=== PATIENT | female | born 1975 | race Caucasian/White ===

== ENCOUNTER → 2016-11-16 | Outpatient (CLI) | payer MEDICARE ==
[2016-11-16 13:48] LABS: BASO # 0.1 x10^3/uL (0.0-0.2); BASO % 1 % (0-3); EOS # 0.2 x10^3/uL (0.0-0.7); EOS % 3 % (0-3); HEMOGLOBIN 13.6 g/dL (12.0-15.5); LYMPH # 1.2 x10^3/uL (1.0-4.8); LYMPH % 21 % (24-48); MEAN CORPUSCULAR HEMOGLOBIN 32 pg (25-35); MEAN CORPUSCULAR HGB CONC 34 g/dL (31-37); MEAN CORPUSCULAR VOLUME 94 fL (79-100); MONO # 0.4 x10^3/uL (0.0-1.1); MONO % 6 % (0-9); NEUT # 3.9 x10^3uL (1.8-7.7); NEUT % 69 % (31-73); PLATELET COUNT 237 x10^3/uL (140-400); RED BLOOD COUNT 4.27 x10^6/uL (3.50-5.40); RED CELL DISTRIBUTION WIDTH 12.6 % (11.5-14.5); WHITE BLOOD COUNT 5.7 x10^3/uL (4.0-11.0)
[2016-11-16 13:59] LABS: ALBUMIN 3.9 g/dL (3.4-5.0); ALBUMIN/GLOBULIN RATIO 1.1 (1.0-1.7); C REACTIVE PROTEIN 4.5 mg/L (0-3.3); CALCIUM 9.2 mg/dL (8.5-10.1); CREATININE 0.9 mg/dL (0.6-1.0); GFR 68.7; POTASSIUM 4.5 mmol/L (3.5-5.1); TOTAL BILIRUBIN 0.4 mg/dL (0.2-1.0); TOTAL PROTEIN 7.5 g/dL (6.4-8.2)
[2016-11-16 14:53] LABS: SEDIMENTATION RATE 22 (0-25)
[2016-11-18 19:07] LABS: ANA INTERP Positive (.)
== END | disposition home or self-care (01) ==
LOC: LAB 12:43
PROVIDERS: ATTEND Internal Medicine Rheumatology
DX: M25.50 Pain in unspecified joint (principal); R76.0 Raised antibody titer
CPT/HCPCS: 36415; 80053; 85027; 85651; 86140

== ENCOUNTER → 2017-03-31 | Outpatient (CLI) | payer MEDICARE ==
--- NOTE | 2017-03-31 12:59 | RAD ---
EXAM: Chest 2 views. HISTORY: Chest pain. COMPARISON: 06/09/2014. FINDINGS: Frontal and lateral views of the chest are obtained. There are no confluent infiltrates. There is no pneumothorax or pleural effusion. The heart is not enlarged. Cholecystectomy clips are noted. IMPRESSION: 1. No confluent infiltrates.
== END | disposition home or self-care (01) ==
LOC: DXRAD 11:39
PROVIDERS: ATTEND Physician Assistant
DX: R09.89 Other specified symptoms and signs involving the circulatory and respiratory systems (principal); Z90.49 Acquired absence of other specified parts of digestive tract
CPT/HCPCS: 71020

== ENCOUNTER → 2017-10-20 | Outpatient (CLI) | payer MEDICARE ==
--- NOTE | 2017-10-20 13:21 | RAD ---
Right Lower Extremity Venous Doppler Ultrasound Indication: Pain swelling. History of deep venous thrombosis. Bruise in the upper thigh. Comparison: None. Procedure: Color Doppler, spectral Doppler, and grayscale images with and without compression are obtained in the area of the common femoral vein, superficial femoral vein - femoral vein junction, main femoral vein (superficial femoral vein) and popliteal vein. Veins of the proximal calf are also imaged. Findings: There is normal duplex flow, color flow and compressibility of all visualized vein segments. There is no evidence of deep venous thrombosis. Additional imaging was performed of the posterior thigh in area of bruising. No focal fluid collection is identified. Impression: No evidence of right lower extremity deep venous thrombosis. Electronically signed by: Vincent Cruz MD (10/20/2017 1:18 PM) [place] [id number]
== END | disposition home or self-care (01) ==
LOC: PMG 11:14
PROVIDERS: ATTEND Family Medicine
DX: M79.651 Pain in right thigh (principal); M79.89 Other specified soft tissue disorders; Z86.718 Personal history of other venous thrombosis and embolism
CPT/HCPCS: 93971

== ENCOUNTER 2018-01-22 03:37 | Inpatient (IN) | payer MEDICARE ==
[~2018-01-22] VITALS: Ht 175.3 cm; Wt 88.3 kg
[2018-01-22] MEDS ORDERED: ONDANSETRON ODT 4 MG TAB.RAPDIS ONE (03:49)
--- NOTE | 2018-01-22 03:50 | ED.ADGEN ---
Past History Past Medical History: Arthritis, CVA, Seizure, Stroke, Other Past Surgical History: Hysterectomy, Other Adult General Chief Complaint Chief Complaint "....This is the third day of nausea and vomiting... I think I am dehydrated... the only other time I felt this bad.. I had really low potassium...".. " I just fell bad all over.. really tired... I am afraid I going to have seizure.. because I can't keep my seizure meds down.. " HPI HPI Patient is a 42 year old female who presents with above hx and complaints persistent nausea and vomiting for past three days. Pt has generalized myalgia , arthralgia and malaise. Pt. denies any travel, trauma or specific ill contacts. No hx of bad food intake. Pt. states she has had a headache with all the nausea and vomiting. Pt. did take a Zofran at home with out any relief of the nausea and vomiting. Pt. has significant hx of antiphospholipid antibody - has resulted in two Rt sided CVAs. (2003, 2011). Hx of Rt. eye field vision loss from 1st CVA. . Hx. of arthritis. Hx. of Lupus. Pt. has not been on Coumadin for years, only takes ASA and high dosage of Folate 800 a day. Patient does follow with a produce assistant and a drafter. Patient also follows with Dr. Jean Baptiste for maintenance health care. Pt. has been unable to take any of her anti-inflammatory or seizure medications. Patient does have some mild epigastric pain. Patient denies any problems with passage of gas or stool. No dark stools reported. Review of Systems Review of Systems Constitutional: Denies fever or chills [] Eyes: Denies change in visual acuity, redness, or eye pain [] HENT: Denies nasal congestion or sore throat [] Respiratory: Denies cough or shortness of breath [] Cardiovascular: No additional information not addressed in HPI [] GI: Complains of generalized abdominal pain, nausea, vomiting. Denies bloody stools or diarrhea [] : Denies dysuria or hematuria [] Musculoskeletal: Denies back pain or joint pain [] Integument: Denies rash or skin lesions [] Neurologic: Complains of headache. Denies, focal weakness or sensory changes [] Endocrine: Denies polyuria or polydipsia [] All other systems were reviewed and found to be within normal limits, except as documented in this note. Family History Family History Noncontributory Current Medications Current Medications Current Medications Medications (Trade) Dose Ordered Sig/Barb Start Time Stop Time Status Last Admin Dose Admin Famotidine (Pepcid Vial) 20 mg 1X ONCE 01/22/18 04:30 01/22/18 04:31 DC 01/22/18 04:20 20 MG Lactated Ringer's 1,000 ml @ 1,000 mls/hr Q1H 01/22/18 04:30 01/22/18 05:29 DC 01/22/18 04:19 1,000 MLS/HR Ondansetron HCl (Zofran Odt) 8 mg 1X ONCE 01/22/18 04:30 01/22/18 04:31 DC 01/22/18 04:20 8 MG Ondansetron HCl (Zofran) 8 mg 1X ONCE 01/22/18 04:30 01/22/18 04:31 DC Allergies Allergies Allergies Coded Allergies Type Severity Reaction Last Updated Verified codeine Allergy Unknown 01/22/18 Yes Physical Exam Physical Exam Constitutional: in acute distress, non-toxic appearance. [] HENT: Normocephalic, atraumatic, bilateral external ears normal, oropharynx dry, , no oral exudates, nose normal. [] Eyes: PERRLA, EOMI, conjunctiva normal, no discharge. [] Rt. field vision loss. ( Appears to have some deficit in both eyes on exam. ) Neck: Normal range of motion, no tenderness, supple, no stridor. [] Cardiovascular:Heart rate regular rhythm, no murmur [] Lungs & Thorax: Bilateral breath sounds clear to auscultation [] Abdomen: Bowel sounds normal, soft, epigastric tenderness, no masses, no pulsatile masses. [] Old surgical scars Skin: Warm, dry, no erythema, no rash. [] Poor turgor Back: No tenderness, no CVA tenderness. [] Extremities: No tenderness, no cyanosis, no clubbing, ROM intact, no edema. [] Neurologic: Alert and oriented X 3, normal motor function, normal sensory function, no focal deficits noted. []DTR +2 patella, and brachia. High Lighter equal. No drift. No distal vib. loss. Psychologic: Affect anxious, judgement normal, mood depressed. [] Current Patient Data Vital Signs Vital Signs Date Time Temp Pulse Resp B/P (MAP) Pulse Ox O2 Delivery O2 Flow Rate FiO2 01/22/18 03:37 97.7 80 22 99 Room Air Lab Results Laboratory Tests Test 01/22/18 04:02 White Blood Count 7.4 x10^3/uL (4.0-11.0) Red Blood Count 4.19 x10^6/uL (3.50-5.40) Hemoglobin 13.8 g/dL (12.0-15.5) Hematocrit 39.7 % (36.0-47.0) Mean Corpuscular Volume 95 fL (79-100) Mean Corpuscular Hemoglobin 33 pg (25-35) Mean Corpuscular Hemoglobin Concent 35 g/dL (31-37) Red Cell Distribution Width 12.6 % (11.5-14.5) Platelet Count 226 x10^3/uL (140-400) Neutrophils (%) (Auto) 56 % (31-73) Lymphocytes (%) (Auto) 28 % (24-48) Monocytes (%) (Auto) 9 % (0-9) Eosinophils (%) (Auto) 6 % (0-3) H Basophils (%) (Auto) 1 % (0-3) Neutrophils # (Auto) 4.1 x10^3uL (1.8-7.7) Lymphocytes # (Auto) 2.1 x10^3/uL (1.0-4.8) Monocytes # (Auto) 0.6 x10^3/uL (0.0-1.1) Eosinophils # (Auto) 0.4 x10^3/uL (0.0-0.7) Basophils # (Auto) 0.1 x10^3/uL (0.0-0.2) Erythrocyte Sedimentation Rate 17 (0-25) Prothrombin Time 9.5 SEC (9.4-11.4) Prothrombin Time INR 1.0 (0.9-1.1) PTT 24 SEC (23-33) Sodium Level 137 mmol/L (136-145) Potassium Level 3.6 mmol/L (3.5-5.1) Chloride Level 102 mmol/L (98-107) Carbon Dioxide Level 26 mmol/L (21-32) Anion Gap 9 (6-14) Blood Urea Nitrogen 17 mg/dL (7-20) Creatinine 0.8 mg/dL (0.6-1.0) Estimated GFR (Cockcroft-Gault) 78.3 Glucose Level 84 mg/dL (70-99) Calcium Level 9.3 mg/dL (8.5-10.1) Troponin I Quantitative < 0.017 ng/mL (0-0.055) C-Reactive Protein 5.4 mg/L (0-3.3) H Lipase 153 U/L (73-393) EKG EKG My interpretation EKG shows a sinus rhythm at 66 bpm. Leftward axis. No findings acute STEMI of contralateral changes.[] Radiology/Procedures Radiology/Procedures My interpretation acute abdomen film shows no acute cardiopulmonary findings. No free air in the diaphragm. Does have clips from prior gallbladder surgery. Nonspecific bowel gas pattern. My interpretation CT of head shows no shift, mass, edema, bleed, or fracture. See formal report when available[] Course & Med Decision Making Course & Med Decision Making Pertinent Labs and Imaging studies reviewed. (See chart for details) Discussed presentation, testing and tx. plan with Dr. Soliman. Patient to be admitted to telemetry for further evaluation and treatment Dr. Soliman. [] Final Impression Final Impression 1. Nausea and vomiting- Intractable 2. Dehydration[] 3. Hx. of Antiphospholipid Antibody 4. Hx. of CVA - RT side- 2011. 5. Rt. Field Vision loss from CVA 6. Hx. Seizure Disorder 7. Hx. Lupus 8. Elevated CRP 9. Urine Drug Screen + Marijuana Dragon Disclaimer Dragon Disclaimer This electronic medical record was generated, in whole or in part, using a voice recognition dictation system. SHABBIR DALE MD Jan 22, 2018 03:50
[2018-01-22 04:16] LABS: BASO # 0.1 x10^3/uL (0.0-0.2); BASO % 1 % (0-3); EOS # 0.4 x10^3/uL (0.0-0.7); EOS % 6 % (0-3); HEMATOCRIT 39.7 % (36.0-47.0); HEMOGLOBIN 13.8 g/dL (12.0-15.5); LYMPH # 2.1 x10^3/uL (1.0-4.8); LYMPH % 28 % (24-48); MEAN CORPUSCULAR HEMOGLOBIN 33 pg (25-35); MEAN CORPUSCULAR HGB CONC 35 g/dL (31-37); MEAN CORPUSCULAR VOLUME 95 fL (79-100); MONO # 0.6 x10^3/uL (0.0-1.1); MONO % 9 % (0-9); NEUT # 4.1 x10^3uL (1.8-7.7); NEUT % 56 % (31-73); PLATELET COUNT 226 x10^3/uL (140-400); RED BLOOD COUNT 4.19 x10^6/uL (3.50-5.40); RED CELL DISTRIBUTION WIDTH 12.6 % (11.5-14.5); WHITE BLOOD COUNT 7.4 x10^3/uL (4.0-11.0)
[2018-01-22 04:25] LABS: C REACTIVE PROTEIN 5.4 mg/L (0-3.3); CALCIUM 9.3 mg/dL (8.5-10.1); CREATININE 0.8 mg/dL (0.6-1.0); GFR 78.3; POTASSIUM 3.6 mmol/L (3.5-5.1)
[2018-01-22] MEDS ORDERED: IV RINGERS SOLUTION,LACTATED 1,000 ML IV SCH (04:30)
[2018-01-22] MEDS ORDERED: ONDANSETRON ODT 4 MG TAB.RAPDIS PO ONE (04:30)
[2018-01-22] MEDS ORDERED: FAMOTIDINE 20 MG/2 ML VIAL IVP ONE (04:30)
[2018-01-22] MEDS ORDERED: ONDANSETRON PF 4 MG/2 ML VIAL. IV ONE (04:30)
--- NOTE | 2018-01-22 04:41 | RAD ---
CT head without contrast TECHNIQUE: [address] imaging skull base to vertex. HISTORY: Headache for 3 days. History of prior cerebral vascular accident. FINDINGS: No intracranial hemorrhage, mass, hydrocephalus, extra-axial fluid collections or infarction. No acute ischemic change. Orbits, paranasal sinuses, mastoids and bones are unremarkable. IMPRESSION: No acute intracranial CT abnormality. Exposure: One or more of the following individualized dose reduction techniques were utilized for this examination: 1. Automated exposure control 2. Adjustment of the mA and/or kV according to patient size 3. Use of iterative reconstruction technique Electronically signed by: Saulo Hahn MD (01/22/2018 4:38 AM) [facility]
--- NOTE | 2018-01-22 04:45 | EKG ---
[address] [address] Test Date: 2018-01-22 Test Time: 04:43:34 Pat Name: CHRISTIE CARR Department: Room: Gender: F Nurse Practitioner Physicians Assistant: : 1975 Requested By: SHABBIR DALE Order Number: [id number] Reading MD: Tony Del Castillo MD Measurements Intervals [place] Rate: 66 P: -41 MA: 146 QRS: -9 QRSD: 80 T: 24 QT: 400 QTc: 421 Interpretive Statements SINUS RHYTHM Electronically Signed On 01-23-2018 12:16:48 CDT by Tony Del Castillo MD
--- NOTE | 2018-01-22 04:53 | RAD ---
PA chest and AP upright supine abdomen x-rays HISTORY: Abdominal pain, nausea and vomiting for 3 days. FINDINGS: Heart size normal. No pulmonary opacities or pleural effusions. No pneumoperitoneum. Cholecystectomy. Mild volume of stool. No dilated small bowel loops. Bones and soft tissues are unremarkable. IMPRESSION: No evidence of bowel obstruction. No acute process in the chest. Electronically signed by: Saulo Hahn MD (01/22/2018 4:51 AM) [facility]
[2018-01-22 04:57] LABS: BARBITURATES NEG (NEG); BENZODIAZEPINES NEG (NEG); CANNABINOIDS POS (NEG); COCAINE NEG (NEG); METHADONE NEG (NEG); OPIATES NEG (NEG); PHENCYCLIDINE NEG (NEG)
[2018-01-22 04:58] LABS: BACTERIA,URINE 0 /HPF (0-FEW); BILIRUBIN,URINE NEG (NEG); CLARITY,URINE CLEAR; COLOR,URINE YELLOW; GLUCOSE,URINE NEG (NEG); NITRITE,URINE NEG (NEG); RBC,URINE 0 /HPF (0-2); SQUAMOUS EPITHELIAL CELL,UR FEW /LPF; UROBILINOGEN,URINE 0.2 mg/dL (0.2 mg/dL); WBC,URINE OCC /HPF (0-4)
[2018-01-22] MEDS ORDERED: LORazepam 2 MG/ML VIAL ONE ×2 (04:58→18:57)
[2018-01-22 04:59] LABS: AMPHETAMINE/METHAMPHETAMINE NEG (NEG)
[2018-01-22] MEDS ORDERED: lamoTRIgine 100 MG TABLET. PO ONE (05:00)
[2018-01-22 05:14] LABS: SEDIMENTATION RATE 17 (0-25)
[2018-01-22] MEDS ORDERED: PROMETHAZINE IM 25 MG/ML VIAL IM ONE (05:30)
[2018-01-22] MEDS ORDERED: methylPREDNISolone SOD SUCC PF 125 MG/2 ML VIAL. IV ONE (05:30)
[2018-01-22] MEDS ORDERED: LORazepam 2 MG/ML VIAL IV ONE (05:30)
[2018-01-22] MEDS ORDERED: diphenhydrAMINE 50 MG/ML VIAL IVP ONE (05:30)
[2018-01-22 05:59] VITALS: BP 131/85
[2018-01-22] MEDS ORDERED: LAMO200T3 PO (05:59)
[2018-01-22] MEDS ORDERED: ASPI325T8 PO (05:59)
[2018-01-22] MEDS ORDERED: FOLIC ACID 1 MG TABLET PO ONE (06:00)
[2018-01-22] MEDS ORDERED: VORT10TA PO (06:25)
[2018-01-22] MEDS ORDERED: LAMO200T2 PO (06:25)
[2018-01-22] MEDS ORDERED: BUPR-192 PO (06:25)
[2018-01-22] MEDS ORDERED: PANT40TA5 PO (06:25)
[2018-01-22] MEDS ORDERED: ONDA4TAB12 SL (06:25)
[2018-01-22] MEDS: ASPIRIN 325 MG TABLET PO SCH (06:25)
[2018-01-22] MEDS: IV RINGERS SOLUTION,LACTATED 1,000 ML IV SCH ×4 (06:27→20:28)
[2018-01-22] MEDS ORDERED: PANT40VI16 IV (07:55)
[2018-01-22] MEDS ORDERED: LEVE500T56 IV (07:55)
[2018-01-22] MEDS: ONDANSETRON PF 4 MG/2 ML VIAL. IV PRN ×3 (09:28→17:43)
[2018-01-22 10:40] VITALS: BP 104/68
[2018-01-22] MEDS ORDERED: PROMETHAZINE 12.5 MG in IV NORMAL SALINE 50ML 50 ML IV PRN (12:45)
[2018-01-22] MEDS: PROMETHAZINE 25 MG TABLET. PO PRN ×2 (13:25→20:28)
--- NOTE | 2018-01-22 13:31 | HP ---
ADMIT DATE: 01/22/2018 HISTORY OF PRESENT ILLNESS: The patient is a 42-year-old female patient who came to the Emergency Room complaining of recurrent bouts of nausea and vomiting. She stated that this started about 3 days ago, and when she came this morning, her nausea and vomiting became worse and she also complained of feeling achy all over, really tired, was worried that she have a seizure. She has not kept any seizure medication down. She is known to have seizure disorder since her teenager years and she has been on Lamictal 400 mg twice a day. The patient denied any travel, trauma, or specific ill contact. She has no history of bad food intake. She has had headache with all the nausea and vomiting. She also did take her Zofran at home without any relief of nausea and vomiting. She was admitted and started on IV fluid and antiemetic. Given that she has not had any of her anti-seizure medication, I did start her empirically on Keppra 500 mg twice a day. PAST MEDICAL HISTORY: Significant for seizure disorder since teenager years. She is known to have systemic lupus erythematosus, antiphospholipid syndrome. She did have DVT in her left leg and arm. 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 She was on Coumadin and was discontinued about 3 years ago because of excessive vaginal bleeding, and for which she ended up with a hysterectomy and unilateral oophorectomy. PAST SURGICAL HISTORY: Significant for cholecystectomy, total abdominal hysterectomy, unilateral oophorectomy, tonsillectomy. ALLERGIES: She is allergic to CODEINE. MEDICATIONS: She is currently on following medications: She is on aspirin 325 mg once a day, folic acid 800 mcg daily, Protonix 40 mg twice a day. She is on Lamictal 400 mg twice a day. She is also on ondansetron 4 mg every 6 hours, Trintellix 10 mg once a day, and Wellbutrin-XL 150 mg once a day. FAMILY HISTORY: She is the only child. Her father at age of 56 because of multiple myocardial infarctions and congestive heart failure. Her mother is still alive at age of 70 and in good health. SOCIAL HISTORY: She is , has 3 biological children of her own and 3 from her . She does not smoke, does not drink alcohol, or use any drugs. She is a [id number] mom. She is using CBD for her joint pain. REVIEW OF SYSTEMS: She does have poor vision in her right eye after she had a stroke, but denied any earache, tinnitus, or sensorineural deafness. Denied any nosebleeds, stuffy nose, or postnasal drip. Denied any sore throat, sore tongue, toothache, hoarseness of voice, or difficulty swallowing. She continued to have dry heaves and vomiting, mostly bile. No hematemesis. Her last bowel movement was about 5 days ago. She denied any abdominal pain. Denied any dysuria, frequency, hematuria. Denied any chest pain, shortness of breath, orthopnea, paroxysmal nocturnal dyspnea. She did complain of headache, generalized aches and pains, and marked weakness: PHYSICAL EXAMINATION: GENERAL: When I examined her this morning, she was resting slightly propped up in bed, in no apparent respiratory distress. No pallor, jaundice, or cyanosis. No lymphadenopathy, no thyromegaly. No jugular venous distension. No lower limb edema. VITAL SIGNS: Her heart rate when I saw her was 77, blood pressure was 104/68, temperature was 98.3, respiratory rate was 18, and oxygen saturation was 93% on room air. HEAD, EYES, EAR, NOSE, AND THROAT: Showed normocephalic, atraumatic. NECK: Supple. HEART: Showed normal first and second heart sounds with no gallop, rub, or murmur. CHEST: Clear to auscultation. No crepitation or rhonchi. ABDOMEN: Distended, soft, nontender. No guarding or rigidity. No organomegaly. All hernial orifice intact. Bowel sounds normal. NEUROLOGIC: She is awake, alert, responding appropriately. All cranial nerves intact. EXTREMITIES: She moves extremities without difficulty. No cerebellar dysfunction. PSYCHOLOGICAL: Affect is anxious. Judgment was normal and mood was depressed. LABORATORY DATA: While in the Emergency Room, she has had lab work done, which showed that her white cell count was 7400, hemoglobin 13.8, hematocrit 39.7, MCV 95, and platelet count 226,000 with normal manual differential. Her prothrombin time was 9.5, INR of 1, aPTT was 24. Her chemistry showed a serum sodium 137, potassium 3.6, chloride 102, bicarbonate 26, anion gap of 9, BUN 17, creatinine 0.8, estimated GFR was 78 mL per minute, her calcium was 9.3. Serum lipase was 153. C-reactive protein was 5.4. Her sedimentation rate was 17. Her urinalysis showed the urine was yellow, clear with a pH of 6, specific gravity of 1.015. The urine was negative for protein, glucose. There was a small amount of ketones, negative for blood, nitrite, and leukocyte esterase. There are no rbc's, no wbc's, and no bacteria. Her toxic screen was positive for cannabinoid screen. It was negative for opiates, methadone, barbiturates, phencyclidine, amphetamine, methamphetamine, benzodiazepine, cocaine, and alcohol. Her CT scan of the head showed there is no intracranial hemorrhage, mass, hydrocephalus, extraaxial fluid collection, or infarction. No acute ischemic changes orbits, paranasal sinuses, mastoid, and air cells and bones are unremarkable. Her acute abdomen series showed that the heart size is normal. No pulmonary opacities or pleural effusions, no pneumomediastinum, no pneumoperitoneum. She has a cholecystectomy, mild volume of stool, no dilated small bowel loops, bones and soft tissues are unremarkable. IMPRESSION: The patient was admitted with intractable nausea and vomiting that has been going on for the last 3 days. Surprisingly, her lab work seemed to be reasonable as well. Her kidney function also seemed to be well within acceptable range. PLAN: My plan is to continue with IV fluid. We will try Phenergan, as Phenergan known to have worked better for her and I started her on Keppra 500 mg IV twice a day. Once she is able to tolerate food, we will switch her back to her all her medication. I will repeat all her lab works tomorrow. CHENCHO VALERO MD DR: JERROD/oracio JOB#: [id number] / [id number]
[2018-01-22 13:59] VITALS: BP 105/66
[2018-01-22 18:53] VITALS: BP 116/82
[2018-01-22] MEDS ORDERED: LORazepam 2 MG/ML VIAL IV PRN (19:15)
[2018-01-22 22:11] VITALS: BP 105/60
[2018-01-22] MEDS ORDERED: PANT40TA3 PO (23:12)
[2018-01-22] MEDS ORDERED: NIFE10CA2 PO (23:17)
[2018-01-22] MEDS: PANTOPRAZOLE IV 40 MG VIAL. IVP SCH (23:44)
[2018-01-23] VITALS (7 sets, daily range): BP systolic 98–118; BP diastolic 64–82
[2018-01-23] MEDS: IV RINGERS SOLUTION,LACTATED 1,000 ML IV SCH ×5 (02:05→20:39)
[2018-01-23] MEDS: PROMETHAZINE 25 MG TABLET. PO PRN ×3 (06:18→19:38)
[2018-01-23] MEDS: ACETAMINOPHEN 325 MG TABLET PO PRN ×2 (06:18→23:27)
[2018-01-23 07:16] LABS: BASO % 1 % (0-3); EOS # 0.1 x10^3/uL (0.0-0.7); EOS % 2 % (0-3); HEMATOCRIT 34.1 % (36.0-47.0); HEMOGLOBIN 11.7 g/dL (12.0-15.5); LYMPH # 2.1 x10^3/uL (1.0-4.8); LYMPH % 35 % (24-48); MEAN CORPUSCULAR HEMOGLOBIN 33 pg (25-35); MEAN CORPUSCULAR HGB CONC 34 g/dL (31-37); MEAN CORPUSCULAR VOLUME 96 fL (79-100); MONO # 0.4 x10^3/uL (0.0-1.1); MONO % 7 % (0-9); NEUT # 3.3 x10^3uL (1.8-7.7); NEUT % 55 % (31-73); PLATELET COUNT 171 x10^3/uL (140-400); RED BLOOD COUNT 3.56 x10^6/uL (3.50-5.40); RED CELL DISTRIBUTION WIDTH 12.7 % (11.5-14.5)
[2018-01-23 07:53] LABS: ALBUMIN 2.9 g/dL (3.4-5.0); ALBUMIN/GLOBULIN RATIO 1.2 (1.0-1.7); CALCIUM 8.3 mg/dL (8.5-10.1); CREATININE 0.8 mg/dL (0.6-1.0); GFR 78.3; POTASSIUM 3.6 mmol/L (3.5-5.1); TOTAL BILIRUBIN 0.3 mg/dL (0.2-1.0); TOTAL PROTEIN 5.3 g/dL (6.4-8.2)
[2018-01-23] MEDS: ASPIRIN 325 MG TABLET PO SCH (09:16)
[2018-01-23] MEDS: PANTOPRAZOLE IV 40 MG VIAL. IVP SCH ×2 (09:25→19:38)
[2018-01-23] MEDS ORDERED: NIFEdipine 10 MG CAPSULE PO PRN (13:45)
[2018-01-23] MEDS: buPROPion XL 150 MG TAB.ER.24H PO SCH ×2 (15:38→19:51)
[2018-01-23] MEDS: ONDANSETRON ODT 4 MG TAB.RAPDIS PO PRN ×2 (16:31→22:01)
[2018-01-23] MEDS: lamoTRIgine 100 MG TABLET. PO SCH (20:37)
[2018-01-23] MEDS ORDERED: lamoTRIgine 100 MG TABLET. PO SCH (21:00)
[2018-01-23] MEDS ORDERED: NON FORMULARY ITEM (Pantoprazole Sodium (Protonix) 40 MG) PO SCH (21:00)
--- NOTE | 2018-01-23 22:15 | CONS ---
DATE OF CONSULTATION: 01/23/2018 REFERRING PHYSICIAN: Kerry Soliman MD REASON FOR CONSULTATION: Possible breakthrough seizure. HISTORY OF PRESENT ILLNESS: This is a 42-year-old female, right-handed, was admitted through Emergency Room on 01/22/2018 on the account of persistent nausea, vomiting and epigastric pain. The patient has had 2 spells yesterday described as tonic movements of the upper extremities lasted 1 minute without postictal confusion. The patient did not recall the event. Then, she had another spell this morning and was very brief without postictal confusion. The patient did not recall these spells. She has had a history of seizure disorder since age of teenage. Etiology is uncertain. The patient has had longstanding history of lupus and she has been followed by fence gate assembler. She was placed on Plaquenil. The symptoms of nausea and vomiting has been present for the last 3 days and very frequent. She has been taking Zofran at home without significant relief of her symptoms. The patient also complains of epigastric pain and she related that to GERD. She has had history of esophageal reflux disease and she has been taking Protonix twice daily. She has not had a seizure for a long time. The frequency of seizure is probably once a year and she has been seen by neurologist at [facility] and had numerous EEGs, which are consistent with complex partial seizure. Initial nonenhanced head CT scan revealed no evidence of acute intracranial process. The patient has been taking Lamictal 800 mg for seizure disorder, but because of recurrent nausea and vomiting, she has been loaded with Keppra IV 500 mg twice daily and because she had another spells, the Keppra was increased to 1000 twice daily intravenously. Currently, she complains of mild global headaches. She denies weakness, numbness or paresthesia, visual disturbances, recent head injuries or falls. She denies bowel movement changes. PAST MEDICAL HISTORY: Significant for lupus since teenager described as systemic lupus erythematosus. She is positive for antiphospholipid antibodies and had DVTs in the left leg. She did left middle cerebral artery infarct resulted in right-sided hemiparesis and loss of vision in the right eye in 2003. She has been on Coumadin, but was discontinued 3 years ago because of excessive vaginal bleeding required hysterectomy. States she was placed on a regular dose of aspirin. PAST SURGICAL HISTORY: Significant for cholecystectomy, total abdominal hysterectomy and tonsillectomy. CURRENT HOME MEDICATIONS: Aspirin 325 mg daily, folic acid 800 mcg daily, Protonix 40 mg twice daily, Lamictal 400 mg twice daily, Zofran 4 mg q. 6 hours p.r.n. for vomiting and nausea, Trintellix ____ once daily, Wellbutrin XL 150 mg once daily. ALLERGIES: CODEINE. FAMILY HISTORY: Father at the age of 56 of myocardial infarction. Mother is alive at the age of 70. SOCIAL HISTORY: The patient is . She had 6 grown children. She denies alcohol drinking or illicit drug use, but she smokes marijuana. REVIEW OF SYSTEMS: A 10-point review of system was performed as mentioned above in history of present illness. PHYSICAL EXAMINATION: GENERAL: Well-developed, well-nourished female, not in acute distress. She weighs 191 pounds. VITAL SIGNS: Blood pressure 106/71, respiratory rate 18, pulse is 70 and regular, temperature 98.2, oxygen saturation 95% on room air. HEENT: Normocephalic, atraumatic, otherwise, unremarkable. NECK: Supple. Negative for carotid bruit, lymphadenopathy or thyromegaly. LUNGS: Clear to A and P. CARDIOVASCULAR: Regular rate and rhythm, normal S1, S2. There is no S3, S4 or murmur. ABDOMEN: Soft. Bowel sounds positive. EXTREMITIES: Negative for cyanosis, clubbing, or edema. ABDOMEN: Soft. Bowel sounds positive. There is mild epigastric tenderness. There is no organomegaly. EXTREMITIES: Negative for cyanosis, clubbing or pitting edema. NEUROLOGIC: Mental status: The patient is alert and oriented x 3. The speech is fluent. There is no language dysfunction. Memory, judgment and abstract thinking are normal. The patient denies hallucination or delusion. Visual deal are full. The pupils are reactive to light and accommodation. The extraocular movements are intact. There is no nystagmus. There is no facial motor or sensory deficit. Hearing is intact bilaterally. The palate is elevated symmetrically. Sternocleidomastoid muscles are powerful bilaterally. The patient shrugs her shoulders symmetrically. Protrudes her tongue in the midline without fasciculation or atrophy. MOTOR: No focal muscle bulk was seen. The tone is normal. The strength is 5/5 throughout. Sensory examination revealed normal pinprick and light touch senses throughout. Deep tendon reflexes were symmetric and hypoactive with absent Achilles responses. Gait: The stance is steady. The patient walks without assistance. LABORATORY DATA: CBC revealed white blood cells of 6000, hemoglobin 11.7, hematocrit 34.1, platelet count 171,000. Chemistry revealed sodium of 140, potassium 3.6, chloride 107, CO2 of 26, BUN 8, creatinine 0.8, glucose 111. Calcium is 8.3. Troponin level is normal. Urinalysis is negative. Urine drug screen is positive for marijuana. Non-enhanced head CT scan is normal without acute intracranial abnormalities. Abdomen series, no evidence of bowel obstructions. IMPRESSION: 1. Questionable breakthrough seizure with longstanding history of seizure disorder of unknown etiology. 2. History of stroke resulted in right hemiparesis, none present at this time. 3. Multiple medical problems include systemic lupus erythematosus, positive antiphospholipid antibody 4. Persistent nausea, vomiting with epigastric tenderness, probably due to underlying gastroesophageal reflux disease. 6. Depression and marijuana abuse. RECOMMENDATIONS: 1. Continue with Keppra for now. 2. Treat the underlying gastroesophageal reflux disease. 3. We will arrange for neurological followup on an outpatient basis and arrange for electroencephalogram. M Brittany ROSARIO MD DR: SUSANA/oracio JOB#: [id number] / [id number]
--- NOTE | 2018-01-24 00:44 | PN ---
DATE: 01/23/2018 SUBJECTIVE: The patient is resting slightly propped up in bed, in no apparent distress. She is definitely more awake, alert, has had no further episodes of nausea, vomiting. She did have what seems to be grand mal seizure yesterday, although her said that she has pseudoseizures rather than seizures. We did treat her with substituted her Lamictal with Keppra and has received 500 mg in the morning and after her seizure, we increased her to 1000 mg IV twice a day as she was unable to tolerate all her medication. PHYSICAL EXAMINATION: GENERAL: When I examined her this morning, she looked well and was clearly in no apparent respiratory distress, slightly pale. She is actually, if anything, somewhat plethoric, but no jaundice or cyanosis. No lymphadenopathy, no thyromegaly. No jugular venous distension. No limb edema. VITAL SIGNS: Her heart rate was 63, blood pressure was 105/67, her temperature was 98.4, respiratory rate 20 and oxygen saturation was 93%. HEAD, EYES, EARS, NOSE AND THROAT: Showed normocephalic, atraumatic. NECK: Supple. HEART: Showed normal first and second heart sounds with no gallop, rub or murmur. CHEST: Clear to auscultation. No crepitation or rhonchi. ABDOMEN: Distended, soft, nontender. NEUROLOGIC: She is awake, alert, responding appropriately. All her cranial nerves intact. She moves extremities without difficulty. She ambulates without assistance or assistive devices, although yesterday, she was somewhat dizzy and required assistance. Her intake over the last 24 hours was 5194, output was 700. LABORATORY DATA: Her lab work this morning showed a white cell count of 6000, hemoglobin 11.7, hematocrit 34, MCV 96, and platelet count of 171,000. Her chemistry showed serum sodium of 140, potassium 3.6, chloride 107, bicarbonate 26, anion gap of 7, BUN 8, creatinine 0.8. Estimated GFR was 78 mL per minute. Her glucose 111, calcium was 8.3. Total bilirubin, AST, ALT, alkaline phosphatase were normal. Total protein was 5.3, albumin 2.9 and serum lipase was 157. Her sed rate was 17 mm/hour. C-reactive protein was 5.4 mg/dL. ASSESSMENT: 1. Seizure disorder since teenage years for which she is on Lamictal 200 mg twice a day, although the patient herself said that she is on 400 mg twice a day. She is known to have systemic lupus erythematosus. 2. Either lupus anticoagulant or antiphospholipid syndrome. She apparently had DVT in her left leg and arm. 3. 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 She was on Coumadin and this was discontinued about 3 years ago because of excessive vaginal bleeding for which she ended up with hysterectomy and unilateral oophorectomy. 4. Recurrent bouts of nausea and vomiting, that has finally subsided. My plan is to advance her diet to regular diet and switch her back to her Lamictal and get occupational therapist to evaluate her and we did consult Dr. Cohen to evaluate her. CHENCHO VALERO MD DR: JERROD/oracio JOB#: [id number] / [id number]
[2018-01-24] MEDS: PROMETHAZINE 25 MG TABLET. PO PRN ×2 (02:15→08:26)
[2018-01-24 05:15] VITALS: BP 106/83
[2018-01-24] MEDS: IV RINGERS SOLUTION,LACTATED 1,000 ML IV SCH (07:26)
[2018-01-24] MEDS ORDERED: ASPIRIN 325 MG TABLET PO SCH (09:00)
[2018-01-24] MEDS ORDERED: VORTIOXETINE HYDROBROMIDE 10 MG PO SCH (09:00)
[2018-01-24] MEDS: PANTOPRAZOLE IV 40 MG VIAL. IVP SCH (09:11)
[2018-01-24] MEDS: lamoTRIgine 100 MG TABLET. PO SCH (09:12)
[2018-01-24] MEDS: ASPIRIN 325 MG TABLET PO SCH (09:12)
[2018-01-24 10:13] VITALS: BP 104/65
[2018-01-24] MEDS ORDERED: LEVE100020 PO (12:47)
[2018-01-24] MEDS ORDERED: LAMO100T5 PO (12:47)
[2018-01-24] MEDS ORDERED: BUPR300T3 PO (12:47)
--- NOTE | 2018-01-24 13:45 | DS ---
DATE OF DISCHARGE: 01/24/2018 HISTORY OF PRESENT ILLNESS: The patient is a 42-year-old female patient who came with recurrent bouts of nausea and vomiting about 3 days ago. She also complained of aches and pains all over, tired. She was unable to take any of her medication and was worried about having a seizure. She started to have seizure disorder since she was a teenager and has been on Lamictal 400 mg. She denied any ill contact or bad food intake. She also had headache with nausea and vomiting. The Zofran that she took at home did not relieve her nausea and vomiting and therefore she was admitted and started on IV fluid, antiemetic, and also we started her empirically on Keppra 500 mg twice a day to avoid any breakthrough seizures. Unfortunately, she did have breakthrough seizures and we did consult Dr. Cohen and her Keppra was increased to 1000 mg twice a day. Her nausea and vomiting has largely subsided. Has been started on a clear liquid diet, advanced to soft diet, and she tolerated that without any further episodes of nausea or vomiting. She has had no further episode of seizure this afternoon and has been up and about and steady in her gait without any problem and she was seen by Dr. Cohen who recommended that the patient can be discharged home. PHYSICAL EXAMINATION: GENERAL: When I saw her this afternoon, she looked well and was clearly in no apparent respiratory distress. No pallor, jaundice, no cyanosis or thyromegaly. No jugular venous distention. No lower limb edema. VITAL SIGNS: Her heart rate was 62, blood pressure was 104/65, temperature was 98.8, respiratory rate was 16, and oxygen saturation was 93%. HEAD, EYES, EARS, NOSE AND THROAT: Showed normocephalic, atraumatic. NECK: Supple. HEART: Showed normal first and second heart sounds with no gallop, rub, or murmur. CHEST: Clear to auscultation. No crepitation or rhonchi. ABDOMEN: Distended, soft, and nontender. No guarding or rigidity. No organomegaly. Hernial orifice intact. Bowel sounds normal. NEUROLOGIC: She is awake, alert, responding appropriately. All cranial nerves intact. She moves extremities without difficulty. She ambulates without assistance or assistive devices. Her intake was 5200, output was 700. LABORATORY DATA: Her lab work showed serum sodium 140, potassium 3.6, chloride 107, bicarbonate 26, anion gap of 7, BUN 8, creatinine 0.8, estimated GFR was 78 mL per minute. Her glucose was 111, calcium was 8.3. Total bilirubin, AST, ALT, alkaline phosphatase were normal. Total protein 5.3, albumin 2.9. Lipase was 107. White cell count was 6000, hemoglobin 12, hematocrit 34, MCV 96, and platelet count 271,000 with normal manual differential. DISCHARGE MEDICATIONS: The patient will be discharged home to continue on Lamictal 100 mg twice a day, Keppra 1000 mg twice a day, and Wellbutrin 450 mg once a day. She was discharged also on aspirin 325 mg once a day, nifedipine 10 mg once a day, ondansetron 4 mg every 6 hours, Protonix 40 mg twice a day, and Trintellix 10 mg once a day. FINAL DISCHARGE DIAGNOSES: Acute gastroenteritis, resolved and breakthrough seizures for which we added Keppra 1000 mg twice a day. 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 She was on Coumadin and that was discontinued about 3 years ago because of excessive vaginal bleeding. She should follow with Dr. Cohen to arrange for an outpatient EEG. CHENCHO VALERO MD DR: JERROD/oracio JOB#: [id number] / [id number]
[2018-01-24] MEDS ORDERED: VORTIOXETINE 10 MG PO SCH (21:00)
== END 2018-01-24 14:00 | disposition home or self-care (01) | DRG 100 ==
LOC: ER 03:37 → 1 SOUTH 04:30
PROVIDERS: ADMIT Internal Medicine; ATTEND Internal Medicine
DX: G40.909 Epilepsy, unspecified, not intractable, without status epilepticus (principal); G92 Toxic encephalopathy; D68.61 Antiphospholipid syndrome; G81.91 Hemiplegia, unspecified affecting right dominant side; K52.9 Noninfective gastroenteritis and colitis, unspecified; E86.0 Dehydration; F12.10 Cannabis abuse, uncomplicated; F32.9 Major depressive disorder, single episode, unspecified; H54.61 Unqualified visual loss, right eye, normal vision left eye; K21.9 Gastro-esophageal reflux disease without esophagitis; M32.9 Systemic lupus erythematosus, unspecified; M19.90 Unspecified osteoarthritis, unspecified site; Z79.82 Long term (current) use of aspirin; Z82.49 Family history of ischemic heart disease and other diseases of the circulatory system; Z86.718 Personal history of other venous thrombosis and embolism; Z86.73 Personal history of transient ischemic attack (TIA), and cerebral infarction without residual deficits; Z90.721 Acquired absence of ovaries, unilateral; Z90.710 Acquired absence of both cervix and uterus; Z90.49 Acquired absence of other specified parts of digestive tract; Z88.8 Allergy status to other drugs, medicaments and biological substances
CPT/HCPCS: 36415; 70450; 74022; 80048; 80053; 80307; 81001; 83690; 84484; 85025; 85610; 85651; 85730; 86140; 87040; 93005; 96361; 96372; 96374; 96375; C9113; J1200; J1953; J2060; J2405; J2550; J2930; J7120; Q0162; Q0169; S0028; 99285-25; G0479

== ENCOUNTER 2019-07-23 19:39 | Emergency (ER) | payer MEDICARE ==
[~2019-07-23] VITALS: Ht 175.3 cm; Wt 98.0 kg
[~2019-07-23 19:39] MED LIST: ASPI325T8 PO; BUPR-192 PO; BUPR300T3 PO; LAMO100T5 PO; LAMO200T3 PO; LAMO200T6 PO; LEVE100020 PO; LEVE500T56 IV; NIFE10CA2 PO; ONDA4TAB12 SL; PANT40TA3 PO; PANT40TA5 PO; PANT40VI16 IV; VORT10TA PO
[2019-07-23] MEDS ORDERED: IV NORMAL SALINE 1,000ML 1,000 ML IV ONE (20:00)
--- NOTE | 2019-07-23 20:07 | PHYS DOC ---
Past History Past Medical History: Arthritis, CVA, Seizure, Stroke, Other Past Surgical History: Hysterectomy, Other Alcohol Use: Rarely Drug Use: None Adult General Chief Complaint Chief Complaint: WEAKNESS/GENERALIZED HPI HPI 44-year-old female presents with 4 day history of progressive malaise, general ill feeling, increased fatigue. She has had an intermittent sore throat which she dried describes more as a globus feeling. She has had chills, but no danielle sured fever. The patient has lupus so she has intermittent fevers and chills at baseline. Had her scheduled methotrexate injection yesterday. She has continued to feel worse throughout the day today and decided she should just get checked out. Her daughter also has a sore throat. She has no known sick contacts but she does go to work and has a child in school. Review of Systems Review of Systems Constitutional: Malaise, fatigue. Denies fever or chills [] Eyes: Denies change in visual acuity, redness, or eye pain [] HENT: sore throat. Denies nasal congestion [] Respiratory: Denies cough or shortness of breath [] Cardiovascular: No additional information not addressed in HPI [] GI: Nausea. Denies abdominal pain, vomiting, bloody stools or diarrhea [] : Denies dysuria or hematuria [] Musculoskeletal: Denies back pain or joint pain [] Integument: Denies rash or skin lesions [] Neurologic: Denies headache, focal weakness or sensory changes [] Endocrine: Denies polyuria or polydipsia [] All other systems were reviewed and found to be within normal limits, except as documented in this note. Current Medications Current Medications Current Medications Medications (Trade) Dose Ordered Sig/Barb Start Time Stop Time Status Last Admin Dose Admin Sodium Chloride 1,000 ml @ 1,000 mls/hr 1X ONCE 07/23/19 20:00 07/23/19 20:59 Allergies Allergies Allergies Coded Allergies Type Severity Reaction Last Updated Verified codeine Allergy Intermediate 01/23/18 Yes acetaminophen Allergy Unknown 07/23/19 Yes hydrocodone Allergy Unknown 07/23/19 Yes oxycodone Allergy Unknown 07/23/19 Yes lorazepam Adverse Reaction Intermediate 01/23/18 Yes Physical Exam Physical Exam Constitutional: Well developed, well nourished, no acute distress, non-toxic appearance. [] HENT: Normocephalic, atraumatic, bilateral external ears normal, oropharynx erythematous without exudates, nose normal. [] Eyes: PERRLA, EOMI, conjunctiva normal, no discharge. [] Neck: Normal range of motion, no tenderness, supple, no stridor. [] Cardiovascular: Heart rate regular rhythm, no murmur [] Lungs & Thorax: Bilateral breath sounds clear to auscultation [] Abdomen: Bowel sounds normal, soft, no tenderness, no masses, no pulsatile masses. [] Skin: Malar rash. Warm, dry, no erythema, no rash. [] Back: No tenderness, no CVA tenderness. [] Extremities: No tenderness, no cyanosis, no clubbing, ROM intact, no edema. [] Neurologic: Alert and oriented X 3, normal motor function, normal sensory function, no focal deficits noted. [] Psychologic: Affect normal, judgement normal, mood normal. [] EKG EKG [] Radiology/Procedures Radiology/Procedures [] Course & Med Decision Making Course & Med Decision Making Pertinent Labs and Imaging studies reviewed. (See chart for details) The patient's labs are normal. Her urinalysis is unremarkable. Her influenza and strep tests are both negative. The patient likely just has another viral upper respiratory illness. I have advised supportive care. She is stable for discharge at this time. [] Dragon Disclaimer Dragon Disclaimer This electronic medical record was generated, in whole or in part, using a voice recognition dictation system. Departure Departure: Impression: Primary Impression: Viral syndrome Disposition: 01 HOME, SELF-CARE Condition: STABLE Referrals: RIGO WESLEY MD (PCP) Patient Instructions: Viral Syndrome YADIEL OSEGUERA DO Jul 23, 2019 20:06
[2019-07-23 20:42] LABS: INFLUENZA A PATIENT NEGATIVE (NEGATIVE); INFLUENZA B PATIENT NEGATIVE (NEGATIVE)
[2019-07-23 20:57] LABS: BACTERIA,URINE 0 /HPF (0-FEW); BILIRUBIN,URINE NEG (NEG); CLARITY,URINE CLEAR; COLOR,URINE YELLOW; GLUCOSE,URINE NEG (NEG); NITRITE,URINE NEG (NEG); RBC,URINE 0 /HPF (0-2); SQUAMOUS EPITHELIAL CELL,UR OCC /LPF; UROBILINOGEN,URINE 0.2 mg/dL (0.2 mg/dL); WBC,URINE OCC /HPF (0-4)
[2019-07-23 21:06] LABS: BASO # 0.1 x10^3/uL (0.0-0.2); BASO % 1 % (0-3); EOS # 0.1 x10^3/uL (0.0-0.7); EOS % 1 % (0-3); HEMATOCRIT 37.7 % (36.0-47.0); HEMOGLOBIN 12.9 g/dL (12.0-15.5); LYMPH # 1.6 x10^3/uL (1.0-4.8); LYMPH % 22 % (24-48); MEAN CORPUSCULAR HEMOGLOBIN 34 pg (25-35); MEAN CORPUSCULAR HGB CONC 34 g/dL (31-37); MEAN CORPUSCULAR VOLUME 100 fL (79-100); MONO # 0.4 x10^3/uL (0.0-1.1); MONO % 6 % (0-9); NEUT # 5.1 x10^3uL (1.8-7.7); NEUT % 70 % (31-73); PLATELET COUNT 252 x10^3/uL (140-400); RED BLOOD COUNT 3.77 x10^6/uL (3.50-5.40); RED CELL DISTRIBUTION WIDTH 13.5 % (11.5-14.5); WHITE BLOOD COUNT 7.2 x10^3/uL (4.0-11.0)
[2019-07-23 21:11] VITALS: BP 128/78
[2019-07-23 21:11] LABS: CALCIUM 9.2 mg/dL (8.5-10.1); CREATININE 0.8 mg/dL (0.6-1.0); GFR 77.6; POTASSIUM 3.7 mmol/L (3.5-5.1)
[2019-07-23 21:17] LABS: ALBUMIN 3.8 g/dL (3.4-5.0); ALBUMIN/GLOBULIN RATIO 1.1 (1.0-1.7); TOTAL BILIRUBIN 0.3 mg/dL (0.2-1.0); TOTAL PROTEIN 7.2 g/dL (6.4-8.2)
== END 2019-07-23 21:37 | disposition home or self-care (01) ==
LOC: ER 19:39
DX: B34.9 Viral infection, unspecified (principal); M19.90 Unspecified osteoarthritis, unspecified site; Z86.73 Personal history of transient ischemic attack (TIA), and cerebral infarction without residual deficits; Z88.5 Allergy status to narcotic agent; Z88.8 Allergy status to other drugs, medicaments and biological substances
CPT/HCPCS: 36415; 80053; 81001; 85025; 87070; 87804; 87880; 99283; J7030

== ENCOUNTER 2020-07-28 13:08 | Emergency (ER) | payer MEDICARE ==
[~2020-07-28] VITALS: Ht 175.3 cm; Wt 98.0 kg
[~2020-07-28 13:08] MED LIST changes: -BUPR-192 PO; +BUPR150T21 PO; -PANT40TA5 PO; +PANT40TA6 PO
[2020-07-28] MEDS: DEXAMETHASONE SOD PHOS 10 MG/ML VIAL. IVP ONE (14:30)
[2020-07-28] MEDS: IV NORMAL SALINE 1,000ML 1,000 ML IV ONE (14:30)
[2020-07-28] MEDS: KETOROLAC 15 MG/ML VIAL. IVP ONE (14:30)
--- NOTE | 2020-07-28 14:52 | RAD ---
XR CHEST 1V CLINICAL INDICATIONS: Shortness of breath: COMPARISON: January 22, 2018. Findings: Bilateral ill-defined nodular lung infiltrates are seen including the midlung zones bilater ally and the right lung base. No pleural effusion or pneumothorax is seen. The heart size, pulmonary vasculature, mediastinum and both louis are unremarkable. IMPRESSION: Bilateral ill-defined nodular lung infiltrates. Electronically signed by: Catrachito Moya MD (07/28/2020 2:50 PM) [id number]
[2020-07-28 14:54] LABS: BASO % 0 % (0-3); EOS % 0 % (0-3); LYMPH # 0.7 x10^3/uL (1.0-4.8); LYMPH % 27 % (24-48); MEAN CORPUSCULAR HEMOGLOBIN 32 pg (25-35); MEAN CORPUSCULAR HGB CONC 33 g/dL (31-37); MEAN CORPUSCULAR VOLUME 96 fL (79-100); MONO # 0.3 x10^3/uL (0.0-1.1); MONO % 11 % (0-9); NEUT # 1.5 x10^3uL (1.8-7.7); NEUT % 61 % (31-73); PLATELET COUNT 130 x10^3/uL (140-400); RED BLOOD COUNT 4.39 x10^6/uL (3.50-5.40); RED CELL DISTRIBUTION WIDTH 12.8 % (11.5-14.5); WHITE BLOOD COUNT 2.5 x10^3/uL (4.0-11.0)
[2020-07-28 14:58] LABS: CALCIUM 9.2 mg/dL (8.5-10.1); CREATININE 0.8 mg/dL (0.6-1.0); GFR 77.2; POTASSIUM 3.7 mmol/L (3.5-5.1)
[2020-07-28 15:04] LABS: ALBUMIN 3.9 g/dL (3.4-5.0); ALBUMIN/GLOBULIN RATIO 1.1 (1.0-1.7); C REACTIVE PROTEIN 12.1 mg/L (0-3.3); TOTAL BILIRUBIN 0.3 mg/dL (0.2-1.0); TOTAL PROTEIN 7.5 g/dL (6.4-8.2)
--- NOTE | 2020-07-28 15:08 | PHYS DOC ---
Past History Past Medical History: Arthritis, CVA, Seizure, Stroke, Other Additional Past Medical Histor: LUPUS Past Surgical History: Cholecystectomy, Hysterectomy, Other Additional Past Surgical Histo: BACK/KNEE Alcohol Use: Occasionally Drug Use: None General Adult EDM: Chief Complaint: FATIGUE HPI: HPI: Patient is a 45-year-old female who presents with cough, fatigue. Patient states that she was tested positive for Covid on Monday. Patient's and mother are all positive as well. Patient states that she started having shortne ss of breath and tightness in her chest last night which is what brought her into the emergency room today. Patient has a history of lupus, APS, and CVA. Patient is hemodynamically stable. Review of Systems: Review of Systems: Constitutional: Denies fever or chills Eyes: Denies change in visual acuity HENT: Denies nasal congestion or sore throat Respiratory: Reports cough and shortness of breath Cardiovascular: Reports chest tightness or edema GI: Denies abdominal pain, nausea, vomiting, bloody stools or diarrhea : Denies dysuria Musculoskeletal: Denies back pain or joint pain Integument: Denies rash Neurologic: Denies headache, focal weakness or sensory changes Endocrine: Denies polyuria or polydipsia Lymphatic: Denies swollen glands Psychiatric: Denies depression or anxiety Current Medications: Current Meds: Current Medications Medications (Trade) Dose Ordered Sig/Barb Start Time Stop Time Status Last Admin Dose Admin Dexamethasone Sodium Phosphate (Decadron) 10 mg 1X ONCE 07/28/20 14:30 07/28/20 14:36 DC 07/28/20 14:30 10 MG Ketorolac Tromethamine (Toradol 15mg Vial) 15 mg 1X ONCE 07/28/20 14:30 07/28/20 14:36 DC 07/28/20 14:30 15 MG Sodium Chloride 1,000 ml @ 1,000 mls/hr 1X ONCE 07/28/20 14:30 07/28/20 15:29 07/28/20 14:30 1,000 MLS/HR Allergies: Allergies: Allergies Coded Allergies Type Severity Reaction Last Updated Verified codeine Allergy Intermediate 01/23/18 Yes acetaminophen Allergy Unknown 07/23/19 Yes hydrocodone Allergy Unknown 07/23/19 Yes oxycodone Allergy Unknown 07/23/19 Yes lorazepam Adverse Reaction Intermediate 01/23/18 Yes Physical Exam: PE: Constitutional: Well developed, well nourished, no acute distress, non-toxic appearance. [] HENT: Normocephalic, atraumatic, bilateral external ears normal, oropharynx moist, no oral exudates, nose normal. [] Eyes: PERRLA, EOMI, conjunctiva normal, no discharge. [] Neck: Normal range of motion, no tenderness, supple, no stridor. [] Cardiovascular:Heart rate regular rhythm, no murmur [] Lungs & Thorax: Bilateral breath sounds clear to auscultation [] Abdomen: Bowel sounds normal, soft, no tenderness, no masses, no pulsatile masses. [] Skin: Warm, dry, no erythema, no rash. [] Back: No tenderness, no CVA tenderness. [] Extremities: No tenderness, no cyanosis, no clubbing, ROM intact, no edema. [] Neurologic: Alert and oriented X 3, normal motor function, normal sensory function, no focal deficits noted. [] Psychologic: Affect normal, judgement normal, mood normal. [] Current Patient Data: Labs: Laboratory Tests Test 07/28/20 13:28 White Blood Count 2.5 x10^3/uL (4.0-11.0) L Red Blood Count 4.39 x10^6/uL (3.50-5.40) Hemoglobin 14.0 g/dL (12.0-15.5) Hematocrit 42.0 % (36.0-47.0) Mean Corpuscular Volume 96 fL (79-100) Mean Corpuscular Hemoglobin 32 pg (25-35) Mean Corpuscular Hemoglobin Concent 33 g/dL (31-37) Red Cell Distribution Width 12.8 % (11.5-14.5) Platelet Count 130 x10^3/uL (140-400) L Neutrophils (%) (Auto) 61 % (31-73) Lymphocytes (%) (Auto) 27 % (24-48) Monocytes (%) (Auto) 11 % (0-9) H Eosinophils (%) (Auto) 0 % (0-3) Basophils (%) (Auto) 0 % (0-3) Neutrophils # (Auto) 1.5 x10^3uL (1.8-7.7) L Lymphocytes # (Auto) 0.7 x10^3/uL (1.0-4.8) L Monocytes # (Auto) 0.3 x10^3/uL (0.0-1.1) Eosinophils # (Auto) 0.0 x10^3/uL (0.0-0.7) Basophils # (Auto) 0.0 x10^3/uL (0.0-0.2) Vital Signs: Vital Signs Date Time Temp Pulse Resp B/P (MAP) Pulse Ox O2 Delivery O2 Flow Rate FiO2 07/28/20 13:18 99.6 78 20 80/54 (63) 99 EKG: EKG: [] Radiology/Procedures: Radiology/Procedures: []XR CHEST 1V CLINICAL INDICATIONS: Shortness of breath: COMPARISON: January 22, 2018. Findings: Bilateral ill-defined nodular lung infiltrates are seen including the midlung zones bilaterally and the right lung base. No pleural effusion or pneumothorax is seen. The heart size, pulmonary vasculature, mediastinum and both louis are unremarkable. IMPRESSION: Bilateral ill-defined nodular lung infiltrates. Electronically signed by: Catrachito Moya MD (07/28/2020 2:50 PM) [id number] EXAM: CT angiography of the chest with intravenous contrast. HISTORY: Shortness of breath. TECHNIQUE: Computed tomographic images of the chest were obtained following the administration of intravenous contrast according to angiography protocol. Multiplanar reformatting was performed and three dimensional maximum intensity projection images were obtained. *One or more of the following individualized dose reduction techniques were utilized for this examination: 1. Automated exposure control. 2. Adjustment of the mA and/or kV according to patient size. 3. Use of iterative reconstruction technique. COMPARISON: None. FINDINGS: There is no evidence of pulmonary embolism. The heart is normal in size. The aorta is normal in caliber. There is no aortic dissection. There is no lymphadenopathy. There is no pneumothorax. There is no pleural effusion. There are multifocal groundglass opacities throughout the bilateral upper and lower lobes and right middle lobe, the appearance of which favors atypical pneumonia. There is mild splenomegaly. This may be within this nodule limits for patient body habitus. There is no suspicious or acute osseous finding. IMPRESSION: 1. No evidence of pulmonary embolism. 2. Multifocal groundglass infiltrate throughout both lungs, likely due to atypical pneumonia. Follow-up to confirm resolution. Electronically signed by: Belinda Ayala MD (07/28/2020 4:09 PM) [id number] Heart Score: C/O Chest Pain: No Risk Factors: Risk Factors: DM, Current or recent (<one month) smoker, HTN, HLP, family history of CAD, obesity. Risk Scores: Score 0 - 3: 2.5% MACE over next 6 weeks - Discharge Home Score 4 - 6: 20.3% MACE over next 6 weeks - Admit for Clinical Observation Score 7 - 10: 72.7% MACE over next 6 weeks - Early Invasive Strategies Course & Med Decision Making: Course & Med Decision Making Pertinent Labs and Imaging studies reviewed. (See chart for details) [] Chest x-ray shows bilateral ill-defined nodular lung infiltrates. Patient O2 99%. Patient blood pressure on arrival was 80/44. Liter of normal saline given. Patient's blood pressure on reassessment was 115/60. Patient given Toradol and dexamethasone. Lactic is negative. D-dimer 0.89. CTA ordered to rule out PE. CTA is negative for DVT. Patient most likely has a viral pneumonia. Sending patient home on antibiotics and Medrol Dosepak. Patient to continue to take ibuprofen at home for discomfort. Return to the emergency room with worsening symptoms or concerns. Dragon Disclaimer: Dragon Disclaimer: This electronic medical record was generated, in whole or in part, using a voice recognition dictation system. Departure Departure: Impression: Primary Impression: Pneumonia Qualified Codes: J18.9 - Pneumonia, unspecified organism Disposition: 01 DC HOME SELF CARE/HOMELESS Condition: STABLE Referrals: RIGO WESLEY MD (PCP) Patient Instructions: Pneumonia, Adult, [id number] Additional Instructions: You were seen in the emergency room for cough and shortness of breath. Your chest x-ray shows viral pneumonia. Please take your antibiotic as directed. You may also take ibuprofen at home for discomfort or fever. EMERGENCY DEPARTMENT GENERAL DISCHARGE INSTRUCTIONS Thank you for coming to [facility] (ED) today and trusting us with you care. We trust that you had a positivie experience in our Emergency Department. If you wish to speak to the department management, you may call the director at [phone]. YOUR FOLLOW UP INSTRUCTIONS ARE FOLLOWS: 1. Do you have a private Doctor? If you do not have a private doctor, please ask for a resource list of physicians or clinics that may be able to assist you with follow up care. 2. The Emergency Physician has interpreted your x-rays. The X-Ray specialist will also review them. If there is a change in the findings, you will be notified in 48 hours when at all possible. 3. A lab test or culture has been done, your results will be reviewed and you will be notified if you need a change in treatment. ADDITIONAL INSTRUCTIONS AND INFORMATION: 1. Your care today has been supervised by a physician who is specially trained in emergency care. Many problems require more than one evaluation for a complete diagnosis and treatment. We recommend that you schedule your follow up appointment as recommended to ensure complete treatment of you illness or injury. If you are unable to obtain follow up care and continue to have a problem, or if your condition worsens, we recommend that you return to the ED. 2. We are not able to safely determine your condition over the phone nor are we able to give sound medical advice over the phone. For these safety reasons, if you call for medical advice we will ask you to come to the ED for further evaluation. 3. If you have any questions regarding these discharge instructions please call the ED at [phone]. SAFETY INFORMATION: In the interest of safety, wellness, and injury prevention; we encourage you to wear your sealbelt, if you smoke; quite smoking, and we encourage family to use a protective helmet for bicycling and other sporting events that present an increased risk for head injury. IF YOUR SYMPTOMS WORSEN OR NEW SYMPTOMS DEVELOP, OR YOU HAVE CONCERNS ABOUT YOUR CONDITION; OR IF YOUR CONDITION WORSENS WHILE YOU ARE WAITING FOR YOUR FOLLOW UP APPOINTMENT; EITHER CONTACT YOUR PRIMARY CARE DOCTOR, THE PHYSICIAN WHOSE NAME AND NUMBER YOU WERE GIVEN, OR RETURN TO THE ED IMMEDIATELY. Scripts Methylprednisolone (MEDROL) 4 Mg Tab.ds.pk 1 PKG PO UD for inflammation for 6 Days, #1 PKG 0 Refills Prov: DONTA WINSTON APRN 07/28/20 Amoxicillin/Potassium Clav (AMOX TR-K CLV 875-125 MG TAB) 1 Each Tablet 1 TAB PO BID for infection for 5 Days, #10 TAB Prov: DONTA WINSTON APRN 07/28/20 DONTA WINSTON APRN Jul 28, 2020 15:08
--- NOTE | 2020-07-28 15:12 | EKG ---
[address] [address] Test Date: 2020-07-28 Test Time: 13:33:39 Pat Name: CHRISTIE CARR Department: Room: Gender: F [employer]: LAURA : 1975 Requested By: DONTA WINSTON Order Number: [id number] Reading MD: Measurements Intervals [place] Rate: 77 P: -25 NH: 144 QRS: -20 QRSD: 74 T: 34 QT: 370 QTc: 420 Interpretive Statements SINUS RHYTHM LEFTWARD AXIS OTHERWISE NORMAL ECG RI6.02 No previous ECG available for comparison
[2020-07-28] MEDS: IOHEXOL 350 MG/ML 100 ML VIAL. IV ONE (15:57)
--- NOTE | 2020-07-28 16:12 | RAD ---
EXAM: CT angiography of the chest with intravenous contrast. HISTORY: Shortness of breath. TECHNIQUE: Computed tomographic images of the chest were obtained following the administration of int ravenous contrast according to angiography protocol. Multiplanar reformatting was performed and three dimensional maximum intensity projection images were obtained. *One or more of the following individualized dose reduction techniques were utilized for this examina tion: 1. Automated exposure control. 2. Adjustment of the mA and/or kV according to patient size. 3. Use of iterative reconstruction technique. COMPARISON: None. FINDINGS: There is no evidence of pulmonary embolism. The heart is normal in size. The aorta is radha l in caliber. There is no aortic dissection. There is no lymphadenopathy. There is no pneumothorax. T here is no pleural effusion. There are multifocal groundglass opacities throughout the bilateral upper and lower lobes and right m iddle lobe, the appearance of which favors atypical pneumonia. There is mild splenomegaly. This may b e within this nodule limits for patient body habitus. There is no suspicious or acute osseous finding . IMPRESSION: 1. No evidence of pulmonary embolism. 2. Multifocal groundglass infiltrate throughout both lungs, likely due to atypical pneumonia. Follow- up to confirm resolution. Electronically signed by: Belinda Ayala MD (07/28/2020 4:09 PM) [id number]
[2020-07-28 16:14] VITALS: BP 119/47
[2020-07-28] MEDS ORDERED: AMOX1TAB11 PO (17:13)
[2020-07-28] MEDS ORDERED: METH4TAB2 PO (17:14)
== END 2020-07-28 17:56 | disposition home or self-care (01) ==
LOC: ER 13:08
DX: J18.9 Pneumonia, unspecified organism (principal); M19.90 Unspecified osteoarthritis, unspecified site; Z86.73 Personal history of transient ischemic attack (TIA), and cerebral infarction without residual deficits; Z90.49 Acquired absence of other specified parts of digestive tract; Z90.710 Acquired absence of both cervix and uterus; Z88.5 Allergy status to narcotic agent; Z88.8 Allergy status to other drugs, medicaments and biological substances
CPT/HCPCS: 36415; 71045; 71275; 80053; 82550; 83605; 83615; 84484; 85025; 85379; 86140; 93005; 96361; 96374; 96375; 99285; J1100; J1885; J7030; Q9967

== ENCOUNTER → 2021-02-23 | Outpatient (CLI) | payer MEDICARE ==
[~2021-02-23] MED LIST changes: +AMOX1TAB11 PO; +METH4TAB2 PO
[2021-02-23 16:13] LABS: BASO # 0.1 x10^3/uL (0.0-0.2); BASO % 1 % (0-3); EOS # 0.1 x10^3/uL (0.0-0.7); EOS % 2 % (0-3); HEMATOCRIT 39.3 % (36.0-47.0); HEMOGLOBIN 13.3 g/dL (12.0-15.5); LYMPH # 1.3 x10^3/uL (1.0-4.8); LYMPH % 29 % (24-48); MEAN CORPUSCULAR HEMOGLOBIN 33 pg (25-35); MEAN CORPUSCULAR HGB CONC 34 g/dL (31-37); MEAN CORPUSCULAR VOLUME 97 fL (79-100); MONO # 0.3 x10^3/uL (0.0-1.1); MONO % 6 % (0-9); NEUT # 2.9 x10^3uL (1.8-7.7); NEUT % 63 % (31-73); PLATELET COUNT 232 x10^3/uL (140-400); RED BLOOD COUNT 4.03 x10^6/uL (3.50-5.40); RED CELL DISTRIBUTION WIDTH 13.1 % (11.5-14.5); WHITE BLOOD COUNT 4.6 x10^3/uL (4.0-11.0)
[2021-02-23 16:16] LABS: ALBUMIN 4.2 g/dL (3.4-5.0); ALBUMIN/GLOBULIN RATIO 1.2 (1.0-1.7); C REACTIVE PROTEIN 1.2 mg/L (0-3.3); CREATININE 0.8 mg/dL (0.6-1.0); GFR 77.2; POTASSIUM 3.8 mmol/L (3.5-5.1); TOTAL BILIRUBIN 0.5 mg/dL (0.2-1.0); TOTAL PROTEIN 7.6 g/dL (6.4-8.2)
[2021-02-23 17:23] LABS: BACTERIA,URINE FEW /HPF (0-FEW); BILIRUBIN,URINE NEG (NEG); CLARITY,URINE CLEAR; COLOR,URINE YELLOW; GLUCOSE,URINE NEG (NEG); NITRITE,URINE NEG (NEG); RBC,URINE 0 /HPF (0-2); SQUAMOUS EPITHELIAL CELL,UR FEW /LPF; UROBILINOGEN,URINE 0.2 mg/dL (0.2 mg/dL); WBC,URINE 0 /HPF (0-4)
[2021-02-23 18:45] LABS: SEDIMENTATION RATE 10 (0-25)
[2021-02-24 02:10] LABS: RHEUMATOID FACTOR <10.0 IU/mL (0.0-13.9)
[2021-02-24 03:11] LABS: FSH 27.9 mIU/mL (.); LUTEINIZING HORMONE 35.5 mIU/mL (.)
[2021-02-24 18:15] LABS: ANA INTERP Negative (.)
[2021-02-24 18:27] LABS: FREE T4 0.98 ng/dL (0.76-1.46); THYROID STIM HORMONE (TSH) 0.54 uIU/mL (0.358-3.740)
== END ==
LOC: LAB 13:29
PROVIDERS: ATTEND Family Medicine
DX: U07.1 COVID-19 (principal); I73.00 Raynaud's syndrome without gangrene; I10 Essential (primary) hypertension; E03.9 Hypothyroidism, unspecified; Z78.0 Asymptomatic menopausal state; R68.89 Other general symptoms and signs; I95.9 Hypotension, unspecified; R63.4 Abnormal weight loss; R53.83 Other fatigue; R53.81 Other malaise
CPT/HCPCS: 36415; 80053; 80061; 81001; 83001; 83002; 84439; 84443; 85025; 85651; 86038; 86140; 86431